=== PATIENT | male | born 1975 | race American Indian/Alaskan Native ===

== ENCOUNTER 2019-07-15 17:22 | Emergency (ER) | payer BC ==
--- NOTE | 2019-07-15 18:04 | Event Note ---
ED Screening Note Date of service: 07/15/19 Time: 18:03 ED Screening Note: 44 y/o male comes in for 3 day history of hiccups. PMH DM, HTN CVA This initial assessment/diagnostic orders/clinical plan/treatment(s) is/are subject to change based on patients health status, clinical progression and re- assessment by fellow clinical providers in the ED. Further treatment and workup at subsequent clinical providers discretion. Patient/guardian urged not to elope from the ED as their condition may be serious if not clinically assessed and managed. Initial orders include:
[2019-07-15] MEDS ORDERED: ONDANSETRON 4 MG ODT TAB PO ONE (18:55)
[2019-07-15 19:01] LABS: Basophils # (Auto) 0.2 K/mm3 (0.0-0.1); Eosinophils # (Auto) 0.4 K/mm3 (0.0-0.4); Eosinophils % (Auto) 2.6 % (0.0-4.3); Hematocrit 49.5 % (35.5-45.6); Hemoglobin 16.9 gm/dl (11.8-15.2); Lymphocytes # (Auto) 4.5 K/mm3 (1.2-5.4); Lymphocytes % (Auto) 30.2 % (13.4-35.0); Mean Corpuscular HGB Conc 34 % (32-34); Mean Corpuscular Volume 96 fl (84-94); Monocytes # (Auto) 1.2 K/mm3 (0.0-0.8); Monocytes % (Auto) 7.9 % (0.0-7.3); Platelet Count 320 K/mm3 (140-440); Red Blood Count 5.15 M/mm3 (3.65-5.03); Red Cell Distribution Width 14.7 % (13.2-15.2)
[2019-07-15 19:09] LABS: Alanine Aminotransferase 20 units/L (7-56); Albumin 4.1 g/dL (3.9-5); BUN/Creatinine Ratio 9; Blood Urea Nitrogen 9 mg/dL (9-20); Calcium 8.8 mg/dL (8.4-10.2); Hemolysis Index 9
--- NOTE | 2019-07-15 21:31 | Emergency Department Report ---
ED General Adult HPI - General Chief complaint: Medical Clearance Stated complaint: HICCUPS/CHOKING Time Seen by Provider: 07/15/19 17:59 Source: patient Mode of arrival: Ambulatory Limitations: No Limitations - History of Present Illness Initial comments: This is a 44 y.o. M. that presents to the ER with hiccups for 2 days. Patient reports hiccups worse supine. He tried taking NSAIDs with no improvement of symptoms. PMH of HTN, HLD, and DM2. Patient reports taking medication daily and not sure why he can't stop hiccups. Reports bilateral flank pain due to excessive hiccups. Onset/Timin -: days(s) Consistency: intermittent Improves with: none Worsens with: other (supine) Associated Symptoms: denies other symptoms Treatments Prior to Arrival: none - Related Data Home Medications Medication Instructions Recorded Confirmed Last Taken Fenofibrate 120 mg PO DAILY 01/21/19 01/21/19 Unknown Lisinopril 20 mg PO DAILY 01/21/19 01/21/19 Unknown Metformin Xr (Nf) [Metformin ER 750 mg PO DAILY 01/21/19 01/21/19 Unknown (Nf)] Metoprolol [Lopressor TAB] 50 mg PO DAILY 01/21/19 01/21/19 Unknown Previous Rx's Medication Instructions Recorded Last Taken Type amLODIPine [Norvasc] 10 mg PO QDAY tablet 01/21/19 Unknown Rx hydroCHLOROthiazide [HCTZ] 12.5 mg PO QDAY capsule 01/21/19 Unknown Rx Ibuprofen [Motrin 800 MG tab] 800 mg PO Q8HR PRN #20 tablet 07/15/19 Unknown Rx chlorproMAZINE [Thorazine] 25 mg PO Q6H PRN #12 tab 07/15/19 Unknown Rx Allergies Allergy/AdvReac Type Severity Reaction Status Date / Time No Known Allergies Allergy Unverified 01/20/19 14:06 ED Review of Systems ROS: Stated complaint: HICCUPS/CHOKING Other details as noted in HPI Constitutional: denies: chills, fever Respiratory: denies: cough, shortness of breath, wheezing Cardiovascular: denies: chest pain, palpitations Gastrointestinal: nausea. denies: abdominal pain, vomiting, diarrhea Skin: denies: rash, lesions Neurological: denies: headache, weakness, paresthesias Psychiatric: denies: anxiety, depression ED Past Medical Hx - Past Medical History Hx Hypertension: Yes Hx CVA: Yes (2010) Hx Diabetes: Yes (HIGH HA1C) Additional medical history: high cholesterol - Social History Smoking Status: Never Smoker Substance Use Type: None - Medications Home Medications: Home Medications Medication Instructions Recorded Confirmed Last Taken Type Fenofibrate 120 mg PO DAILY 01/21/19 01/21/19 Unknown History Lisinopril 20 mg PO DAILY 01/21/19 01/21/19 Unknown History Metformin Xr (Nf) [Metformin ER 750 mg PO DAILY 01/21/19 01/21/19 Unknown History (Nf)] Metoprolol [Lopressor TAB] 50 mg PO DAILY 01/21/19 01/21/19 Unknown History amLODIPine [Norvasc] 10 mg PO QDAY tablet 01/21/19 Unknown Rx hydroCHLOROthiazide [HCTZ] 12.5 mg PO QDAY capsule 01/21/19 Unknown Rx Ibuprofen [Motrin 800 MG tab] 800 mg PO Q8HR PRN #20 tablet 07/15/19 Unknown Rx chlorproMAZINE [Thorazine] 25 mg PO Q6H PRN #12 tab 07/15/19 Unknown Rx ED Physical Exam - General Limitations: No Limitations General appearance: alert, in no apparent distress - Respiratory Respiratory exam: Present: normal lung sounds bilaterally. Absent: respiratory distress - Cardiovascular Cardiovascular Exam: Present: regular rate, normal rhythm. Absent: systolic murmur, diastolic murmur, rubs, gallop - GI/Abdominal GI/Abdominal exam: Present: soft, normal bowel sounds. Absent: distended, tenderness, guarding, rebound, rigid - Neurological Exam Neurological exam: Present: alert, oriented X3, normal gait - Psychiatric Psychiatric exam: Present: normal affect, normal mood - Skin Skin exam: Present: warm, dry, intact, normal color. Absent: rash ED Course Vital Signs 07/15/19 07/15/19 17:25 23:10 Temperature 97.8 F 98.7 F Pulse Rate 93 H 107 H Respiratory 16 18 Rate Blood Pressure 186/140 Blood Pressure 187/133 [Left] O2 Sat by Pulse 100 99 Oximetry ED Medical Decision Making - Lab Data Result diagrams: 07/15/19 18:30 07/15/19 18:30 Lab Results 07/15/19 07/15/19 Range/Units 18:30 18:30 WBC 14.8 H (4.5-11.0) K/mm3 RBC 5.15 H (3.65-5.03) M/mm3 Hgb 16.9 H (11.8-15.2) gm/dl Hct 49.5 H (35.5-45.6) % MCV 96 H (84-94) fl MCH 33 H (28-32) pg MCHC 34 (32-34) % RDW 14.7 (13.2-15.2) % Plt Count 320 (140-440) K/mm3 Lymph % (Auto) 30.2 (13.4-35.0) % [place] % (Auto) 7.9 H (0.0-7.3) % Eos % (Auto) 2.6 (0.0-4.3) % Baso % (Auto) 1.0 (0.0-1.8) % Lymph # 4.5 (1.2-5.4) K/mm3 [place] # 1.2 H (0.0-0.8) K/mm3 Eos # 0.4 (0.0-0.4) K/mm3 Baso # 0.2 H (0.0-0.1) K/mm3 Seg Neutrophils % 58.3 (40.0-70.0) % Seg Neutrophils # 8.6 H (1.8-7.7) K/mm3 Sodium 137 (137-145) mmol/L Potassium 3.2 L (3.6-5.0) mmol/L Chloride 96.4 L (98-107) mmol/L Carbon Dioxide 26 (22-30) mmol/L Anion Gap 18 mmol/L BUN 9 (9-20) mg/dL Creatinine 1.0 (0.8-1.5) mg/dL Estimated GFR > 60 ml/min BUN/Creatinine Ratio 9 % Glucose 124 H (75-100) mg/dL Calcium 8.8 (8.4-10.2) mg/dL Total Bilirubin 1.00 (0.1-1.2) mg/dL AST 20 (5-40) units/L ALT 20 (7-56) units/L Alkaline Phosphatase 73 (35-129) units/L Total Protein 7.7 (6.3-8.2) g/dL Albumin 4.1 (3.9-5) g/dL Albumin/Globulin Ratio 1.1 % Lipase 25 (13-60) units/L - Medical Decision Making Patient was seen by this provider. Patient is stable. PMH of HTN, HLD, and DM2. Given Thorazine. He denies chest pain, SOB, or palpations. Given klor- branden 40 mEq. Refused IV fluids. All other labs are unremarkable. Patient is di scharged with Thorazine. Instructed to Follow-up with his primary care doctor Obiewke in 3-5 days or if symptoms worsen and continue return to emergency room as soon as possible. At time of discharge, the patient does not seem toxic or ill in appearance. No acute signs of distress noted. Patient agrees to discharge treatment plan of care. No further questions noted by the patient. Critical care attestation.: If time is entered above; I have spent that time in minutes in the direct care of this critically ill patient, excluding procedure time. ED Disposition Clinical Impression: Hiccups, Asymptomatic hypertension Disposition: TO HOME OR SELFCARE Is pt being admited?: No Does the pt Need Aspirin: No Condition: Stable Instructions: Hiccups (ED), Hypertension (ED) Additional Instructions: I have provided medication you can take four times a day to help with hiccups. You will need to follow up with your primary care doctor for further evaluation. Return to the emergency room with worsening symptoms. Prescriptions: Ibuprofen [Motrin 800 MG tab] 800 mg PO Q8HR PRN #20 tablet PRN Reason: Pain , Severe (7-10) chlorproMAZINE [Thorazine] 25 mg PO Q6H PRN #12 tab PRN Reason: Hiccups Referrals: JAZZ SOLOMON MD [Staff Physician] - 3-5 Days Forms: Work/School Release Form(ED) Time of Disposition: 22:46
[2019-07-15] MEDS ORDERED: chlorproMAZINE 25 MG TAB PO ONE (22:00)
[2019-07-15 23:30] VITALS: BP 187/133
== END 2019-07-15 23:10 | disposition home or self-care (01) ==
LOC: ED 17:22
DX: R06.6 Hiccough (principal); I10 Essential (primary) hypertension; E11.9 Type 2 diabetes mellitus without complications; E78.5 Hyperlipidemia, unspecified
CPT/HCPCS: 36415; 80053; 83690; 85025; Q0161; Q0162